=== PATIENT | male | born 1990 | race Caucasian/White ===

== ENCOUNTER 2018-09-14 06:26 | Emergency (ER) | payer BC ==
--- NOTE | 2018-09-14 06:53 | EDM.PDOC ---
ED HPI GENERAL MEDICAL PROBLEM - General Chief Complaint: General Stated Complaint: left ankle pain Time Seen by Provider: 09/14/18 06:33 Source of Information: Reports: Patient History Limitations: Reports: No Limitations - History of Present Illness INITIAL COMMENTS - FREE TEXT/NARRATIVE: Rene is a 27 yo male who presents to the ED via private vehicle with complaints of left heel/foot pain. States around 3am this morning he went out into his garage that has elevated steps (roughly 4 ft high) to get a bottle of water and went off the side. Admits he landed directly onto his feet. Doesn't feel he twisted his ankle. States he got a severe pain in his heel that shoots up the sides of his foot. Pain worse with weight bearing. Left Ankle Pain Score (Numeric/FACES): 6 - Related Data Allergies Allergy/AdvReac Type Severity Reaction Status Date / Time No Known Allergies Allergy Verified 09/14/18 06:28 Home Meds: Home Meds . [No Known Home Meds] 09/14/18 [History] Past Medical History - Past Health History Medical/Surgical History: Denies Medical/Surgical History Social & Family History - Tobacco Use Smoking Status *Q: Current Every Day Smoker Tobacco Use Within Last Twelve Months: Cigarettes - Alcohol Use Alcohol Use Frequency: Rarely - Living Situation & Occupation Living situation: Reports: with Significant Other Occupation: Employed ED ROS GENERAL - Review of Systems Review Of Systems: ROS reveals no pertinent complaints other than HPI. ED EXAM, GENERAL - Physical Exam Exam: See Below Exam Limited By: No Limitations General Appearance: Alert, No Apparent Distress Extremities: Normal Range of Motion, Normal Capillary Refill, Other (pain with palpation to left heel. Mild swelling over plantar aspect of foot. No bruising noted. Full ROM of ankle and all distal digits. Squeeze test of heel positive. ) . No: Increased Warmth Neurological: Alert, Oriented, Normal Cognition, No Motor/Sensory Deficits Psychiatric: Normal Affect, Normal Mood Skin Exam: Warm, Dry, Intact, Normal Color Course - Vital Signs Last Recorded V/S: Last Vital Signs Temp 98.2 F 09/14/18 06:30 Pulse 110 H 09/14/18 06:30 Resp 18 09/14/18 06:30 BP 129/79 09/14/18 06:30 Pulse Ox 98 09/14/18 06:30 - Orders/Labs/Meds Orders: Active Orders 24 hr Category Date Time Status Calcaneous Lt [CR] Stat Exams 09/14/18 06:50 Ordered Foot Comp Min 3V Lt [CR] Stat Exams 09/14/18 06:28 Ordered - Radiology Interpretation Free Text/Narrative:: X-ray of left foot is unremarkable. No fractures noted. X-ray of left calcaneous is questionable of a distal calcaneal fracture. It is only noted on the AP projection. I do not see any fractures on lateral view. Departure - Departure Time of Disposition: 07:21 Disposition: Home, Self-Care 01 Clinical Impression: Heel pain Qualifiers: Laterality: left Qualified Code(s): M79.672 - Pain in left foot - Discharge Information Forms: ED Department Discharge Additional Instructions: 1) Recommend non weightbearing until final radiology report, will call today with report 2) Crutches as needed as discussed 3) Alternate tylenol and ibuprofen for discomfort, every 4 hours 4) Ice heel - 5 times today for 20 minutes at a time - Problem List & Annotations (1) Heel pain SNOMED Code(s): 5490239 Code(s): M79.673 - PAIN IN UNSPECIFIED FOOT Status: Acute Qualifiers: Laterality: left Qualified Code(s): M79.672 - Pain in left foot - My Orders Last 24 Hours: My Active Orders 09/14/18 06:28 Foot Comp Min 3V Lt [CR] Stat 09/14/18 06:50 Calcaneous Lt [CR] Stat - Assessment/Plan Last 24 Hours: My Active Orders 09/14/18 06:28 Foot Comp Min 3V Lt [CR] Stat 09/14/18 06:50 Calcaneous Lt [CR] Stat
== END 2018-09-14 07:30 | disposition home or self-care (01) ==
LOC: CC.ED 06:26
DX: M79.672 Pain in left foot (principal); F17.210 Nicotine dependence, cigarettes, uncomplicated
CPT/HCPCS: 73630-LT; 73650-LT; 99283-25

== ENCOUNTER 2024-01-28 22:45 | Emergency (ER) | payer BC ==
[2024-01-28] MEDS: Lidocaine 1% 5 ML VIAL INJECT ONE (23:04)
[2024-01-28] MEDS: Diphtheria,Pertussis(Acell),Tetanus Vaccine 0.5 ML Syringe IM ONE (23:13)
[2024-01-28] MEDS: Bacitracin/Neomycin/Polymyxin B Oint 0.9 GM U/D Packet TOP ONE (23:23)
== END 2024-01-28 23:35 | disposition home or self-care (01) ==
LOC: CC.ED 22:45
DX: S01.81XA Laceration without foreign body of other part of head, initial encounter (principal); F17.210 Nicotine dependence, cigarettes, uncomplicated; Z23 Encounter for immunization; W01.0XXA Fall on same level from slipping, tripping and stumbling without subsequent striking against object, initial encounter
CPT/HCPCS: 12011; 90471; 90715; 99282-25; A9270-GY; J3490